=== PATIENT | male | born 1960 | race African-American/Black ===

== ENCOUNTER 2019-07-29 22:43 | Inpatient (IN) | payer BC, OTHER ==
[~2019-07-29] VITALS: Ht 188 cm; Wt 83.5 kg
[2019-07-29 22:44] VITALS: BP 136/90
[2019-07-30] VITALS (7 sets, daily range): BP systolic 121–158; BP diastolic 71–81
[2019-07-30 00:25] LABS: ABSOLUTE NEUTROPHILS 4.3 thou/uL (1.4-8.2); BASOPHILS 0.2 % (0.0-2.0); EOSINOPHILS 0.1 % (0.0-3.0); HEMATOCRIT 41.9 % (42.0-52.0); HEMOGLOBIN 13.6 gm/dL (14.0-18.0); LYMPHOCYTES 14.4 % (24.0-44.0); MCH 25.6 pg (26.0-34.0); MCHC 32.4 g/dL (28.0-37.0); MCV 79.2 fL (80.0-100.0); MONOCYTES 7.1 % (1.0-8.0); PLATELET COUNT 130 thou/uL (150-400); POLYS 78.2 % (36.0-66.0); RDW 14.5 % (10.5-14.5); WBC 5.5 thou/uL (4.0-11.0)
[2019-07-30 00:32] LABS: ANION GAP 12 mmol/L (7-16); BUN 17 mg/dL (7-18); CALCIUM 8.8 mg/dL (8.5-10.1); CHLORIDE 97 mmol/L (98-107); CO2 22 mmol/L (21-32); CREATININE 1.4 mg/dL (0.7-1.3); GLUCOSE 110 mg/dL (74-106); POTASSIUM 4.2 mmol/L (3.5-5.1); SODIUM 131 mmol/L (136-145)
[2019-07-30 00:37] LABS: ALBUMIN 2.9 g/dL (3.4-5.0); SGOT 48 U/L (15-37); SGPT 47 U/L (30-65); TOTAL PROTEIN 8.3 g/dL (6.4-8.2)
[2019-07-30 00:37] LABS: URINE BILIRUBIN NEGATIVE (Negative); URINE BLOOD 3+ (Negative); URINE CLARITY CLEAR; URINE COLOR YELLOW; URINE GLUCOSE-RANDOM* NEGATIVE (Negative); URINE KETONES NEGATIVE (Negative); URINE LEUKOCYTES-REFLEX NEGATIVE (Negative); URINE NITRITE-REFLEX NEGATIVE (Negative); URINE PROTEIN (DIPSTICK) 3+ (Negative); URINE SPECIFIC GRAVITY >= 1.030 (1.005-1.035); URINE UROBILINOGEN 0.2 E.U./dl (0.2-1.0)
[2019-07-30 00:41] LABS: TROPONIN-I <0.06 ng/mL (<0.06)
[2019-07-30 00:52] LABS: APTT 28.9 Seconds (24.5-32.8); PROTIME 10.3 Seconds (9.3-11.4)
[2019-07-30 01:15] LABS: FINE GRANULAR CASTS 0-3 Few /LPF (None Seen); HYALINE CASTS 0-3 Few /LPF (None Seen); MUCUS 0-3 Light strn/LPF (None Seen); SQUAMOUS 0-3 Few /LPF (0-3)
[2019-07-30 01:16] LABS: AMORPHOUS URATES Few /LPF (None Seen); BACTERIA-REFLEX None Seen /HPF (None Seen); CRYSTALS None Seen /LPF (None Seen); URINE RBC 0-2 Rare /HPF (0-2); URINE WBC-REFLEX None Seen /HPF (0-5)
[2019-07-30] MEDS ORDERED: SILDENAFIL20 MG PO (01:17)
[2019-07-30] MEDS ORDERED: AUGMENTIN 875-1 EACH PO (01:17)
[2019-07-30] MEDS ORDERED: FLONASE 0.05%50 MCG NASAL (01:17)
[2019-07-30] MEDS ORDERED: QUETIAPINE FUM100 MG PO (01:18)
[2019-07-30] MEDS ORDERED: ESCITALOPRAM OX10 MG PO (01:18)
--- NOTE | 2019-07-30 05:13 | NUR ---
PATIENT ARRIVED FROM ER VIA CART TO RM 363. ADMISSION ASSESSMENTS COMPLETED. NOTED FEVER 103 IN ER. PATIENT TEMPURATURE AT ADMISSION ASSESSMENT WAS 99.3. ENCOURAGED GUEST TO USE MINIMAL BLANKETS AND CALL IF HE HAD ANY SWEATS OR CHILLS. NOTED ON LABS NA 131. NS INFUSING AT 125 ML/HR. WILL CONTINUE TO MONITOR.
--- NOTE | 2019-07-30 08:40 | EKG ---
[facility] [place] [place] [address] ELECTROCARDIOGRAM REPORT Name: HUMA SARABIA Room #: 363-P ADM IN M.R.#: [id number] Admission: 07/30/19 Attend Phys: Yonatan Luther Discharge: Date of : 58 Report #: [id number] THIS REPORT FOR: cc: Laura Walls MD, Sequita MD Couchonnal,Mynor Moe MD ~ THIS REPORT FOR: //name// [facility] ED Test Date: 2019-07-29 Test Time: 23:20:58 Pat Name: HUMA SARABIA Department: [facility] Gender: M Telephone Operator: linnette brock : 1960 Requested By: David Boateng Order Number: [id number] MD: Mynor Santiago Measurements Intervals [place] Rate: 116 P: 31 GA: 145 QRS: -14 QRSD: 96 T: 8 QT: 305 QTc: 424 Interpretive Statements Sinus tachycardia Probable left atrial enlargement RSR' in V1 or V2, right VCD or RVH Inferior infarct, old No previous ECG available for comparison Electronically Signed On 07-30-2019 8:39:23 CDT by Mynor Santiago [email or web address] <ELECTRONICALLY SIGNED> By: Mynor Santiago MD 07/30/19 0839 232 Mynor Santiago MD /EPI
--- NOTE | 2019-07-30 13:29 | NUR ---
INITIAL ASSESSMENT: CORNELIUS reviewed chart and spoke with nursing and attending physician. Pt was admitted from home and is in Enhanced Isolation to r/o COVID-19. SW attempted to call pt in his room via phone. No answer. Per chart, pt's ykvzdp-jy-sxn recently from COVID-19. Pt's was in contact with pt's pdodso-jo-peo while sick with COVID-19. Pt was not in contact. Pt with fever for several days. Pt is alert/orientated x 4. Pt is up ad tamiko in his room. No discharge needs identified. SW is following to assist should needs arise.
--- NOTE | 2019-07-30 19:08 | NUR ---
PATIENT CONT TO HAVE FEVERS OF ABOVE 102 THIS PM. PHYSICIAN NOTIFIED. CONT ON TYLENOL TO CONTROL FEVER. HE IS ALERT ORIENED X4. STATES HE FEELS SICK BUT FEELS BETTER WHEN HE HAS TYLENOL. WILL CONT WIHT PLAN OF CARE.
[2019-07-31] VITALS (7 sets, daily range): BP systolic 140–159; BP diastolic 68–94
--- NOTE | 2019-07-31 00:26 | NUR ---
CHARTED BIPAP ON WRONG CHART- THE BIPAP TASKS DO NOT BELONG TO THIS PATIENT
--- NOTE | 2019-07-31 00:41 | NUR ---
ASSUMED PT CARE AT 1900 HOURS. PT NOTED TO BE FEBRILE DURING THE DAY, TYLENOL GIVEN. PT REPORTING GENERAL MALAISE BUT DENIES ANY SOA, ON ROOM AIR. VS STABLE EXCEPT ORAL TEMP. 100.1 WITH INITIAL ASSESSMENT. 102.7 FOR MIDNIGHT CHECK, TYLENOL GIVEN. PT COVID-19 TEST WAS POSITIVE. SEED TESTER INFORMED. PT TO BE TRANSFERED TO ICU ROOM 237. WILL TAKE PT VIA W/C, COVERED WITH BEDSHEET AND PROTECTIVE MASK. REPORT GIVEN TO VERNON HOWELL AT THIS TIME.
[2019-07-31 02:01] LABS: HEMATOCRIT 37.9 % (42.0-52.0); HEMOGLOBIN 12.3 gm/dL (14.0-18.0); MCH 25.6 pg (26.0-34.0); MCHC 32.4 g/dL (28.0-37.0); RBC 4.8 mil/uL (4.50-6.00); RDW 14.7 % (10.5-14.5); WBC 4.5 thou/uL (4.0-11.0)
--- NOTE | 2019-07-31 02:03 | NUR ---
REPORT RECIEVED FROM [facility] [place] RN, PATIENT TRANSFERRED TO ICU AT 0130 PER POSITIVE COVID RESULTS ON 07/30/19. PATIENT ALERT AND ORIENTED X4, NO COMPLAINTS OF PAIN, SINUS RHYTHM ON LICENSING ANALYST. O2 SAT 98% ON ROOM AIR, NO SIGN OF RESPIRATORY DISTRESS. PATIENT EDUCATED ON ICU STANDARD OF CARE. LABWORK COMPLETED. PATIENT RESTING COMFORTABLY. NO SIGN OF ACUTE DISTRESS NOTED AT THIS TIME. WILL CONTINUE TO MONITOR.
[2019-07-31 02:09] LABS: CALCIUM 8.6 mg/dL (8.5-10.1); CREATININE 1.2 mg/dL (0.7-1.3)
--- NOTE | 2019-07-31 15:35 | NUR ---
PT TEMP VARIED THIS SHIFT. HAS NOT DROPPED BELOW 100.1, MANAGED WITH MEDS ORDERED. PT REPORTS ONLY HEADACHE PAIN, REPORTS COMPLETE RELIEF WITH MEDICATION. PT USES URINAL AT BEDSIDE, COMMODE FOR BOWEL MOVEMENT X1. PATIENT CONSUMED APPROX 70% OF BREAKFAST LATE IN THE MORNING. DECREASED APPETITE AT LUNCH R/T TIME OF BREAKFAST. PHONE AT BEDSIDE HAS BEEN IN COMMUNICATION WITH FAMILY. DENIES QUESTIONS OR CONCERNS THIS SHIFT. HYDRATION ENCOURAGED. DEEP BREATH AND COUGH ENCOURAGED TO EXPECTORATE MUCUS. PT HAS HAD MODERATE AMOUNT OF THICK YELLOWISH GARCIA MUCUS. O2 SATURATION CONTINUOUSLY MONITORED WITH ICU VITALS. PT UP AD KATHERYN WITH STEADY, BALANCED GAIT.
[2019-08-01 03:43] LABS: ABSOLUTE NEUTROPHILS 3.1 thou/uL (1.4-8.2); BASOPHILS 0.1 % (0.0-2.0); EOSINOPHILS 1.4 % (0.0-3.0); HEMATOCRIT 36.1 % (42.0-52.0); HEMOGLOBIN 11.7 gm/dL (14.0-18.0); LYMPHOCYTES 15.4 % (24.0-44.0); MCH 25.8 pg (26.0-34.0); MCHC 32.5 g/dL (28.0-37.0); MCV 79.4 fL (80.0-100.0); MONOCYTES 9.7 % (1.0-8.0); PLATELET COUNT 174 thou/uL (150-400); POLYS 73.4 % (36.0-66.0); RBC 4.55 mil/uL (4.50-6.00); RDW 14.1 % (10.5-14.5); WBC 4.2 thou/uL (4.0-11.0)
--- NOTE | 2019-08-01 06:20 | NUR ---
Assessments and Interventions documented. Pt febril thoughout the night T-Max 102.6 improved with medication. Patient O2 stat above 90 on room air. All vitals sign WNL. Pt independent up ad tamiko able to make need know. No complaints of headache on this shift. Complaint of mild stomach discomfort. Resolved with some crackers. Sleep comfortable throughout the night. Patient stable progressing toward goals.
[2019-08-01 09:58] VITALS: BP 161/85
--- NOTE | 2019-08-01 13:04 | EKG ---
[facility] [place] [address] ELECTROCARDIOGRAM REPORT Name: HUMA SARABIA Room #: 238-P ADM IN M.R.#: [id number] Admission: 07/30/19 Attend Phys: Yonatan Luther Discharge: Date of : 58 Report #: [id number] THIS REPORT FOR: cc: Laura Walls MD,Laura Santiago,Mynor Moe MD ~ THIS REPORT FOR: //name// [facility] Test Date: 2019-07-31 Test Time: 08:35:41 Pat Name: HUMA SARABIA Department: Room: 238 P Gender: M Lasting Floorworker: Angelique FRAZIER : 1960 Requested By: Romain Sanders Order Number: [id number] : Mynor Santiago Measurements Intervals [place] Rate: 103 P: 22 CO: 145 QRS: -25 QRSD: 91 T: 2 QT: 333 QTc: 436 Interpretive Statements Sinus tachycardia Probable left atrial enlargement Borderline left axis deviation RSR' in V1 or V2, probably normal variant Compared to ECG 07/29/2019 23:20:58 Right ventricular hypertrophy no longer present Myocardial infarct finding no longer present Electronically Signed On 08-01-2019 13:03:27 CDT by Mynor Santiago [email or web address] <ELECTRONICALLY SIGNED> By: Mynor Santiago MD 08/01/19 1303 4 4 Mynor Santiago MD /EPI
[2019-08-01 16:01] VITALS: BP 164/93
[2019-08-01 16:30] VITALS: BP 164/93
--- NOTE | 2019-08-01 16:55 | NUR ---
PATIENT TEMP ELEVATED IN BEGINNING OF SHIFT. TYLENOL ADMINISTERED. PT DID NOT SHOW MUCH IMPROVEMENT ON REASSESSMENT. PROVIDER NOTIFIED. ADMINISTERED NAPROXEN PER ORDERS, PT SHOWED TEMP WITHIN NORMAL RANGE ON REASSESSMENT. PT REMAINS ON ROOM AIR, DENIES SOA, NO S/S OF DISTRESS NOTED. PT VERBALIZES ANXIETY REGARDING ILLNESS, PT ANXIETY DECREASED AFTER SPENDING TIME EDUCATING AND SPEAKING WITH FAMILY. PT UP AD KATHERYN WITH STEADY GAIT. PT APPETITE IMPROVED THIS SHIFT. CONSUMED APPROX 90% OF BREAKFAST AND 70% OF LUNCH. PT RESPONDS WELL WHEN HYDRATION ENCOURAGED. PT PROGRESSING TOWARDS GOALS.
[2019-08-01 20:00] VITALS: BP 147/83
[2019-08-02 04:00] VITALS: BP 133/98
[2019-08-02 05:36] LABS: HEMOGLOBIN 11.5 gm/dL (14.0-18.0); MCH 25.5 pg (26.0-34.0); MCHC 31.9 g/dL (28.0-37.0); MCV 79.7 fL (80.0-100.0); RBC 4.51 mil/uL (4.50-6.00); RDW 14.4 % (10.5-14.5); WBC 4.1 thou/uL (4.0-11.0)
[2019-08-02 05:48] LABS: POTASSIUM 3.5 mmol/L (3.5-5.1)
--- NOTE | 2019-08-02 06:24 | NUR ---
Pt A&Ox4 able to make needs know. Remained afebril throught the night with medication. O2 Staturation 90 and above. No complaints of pain or discomfort. Pt rested throughout the night and is in better spirits about his prognosis. Ate 75% of dinner. No adverse event throughout the night. Patient is progressing towards goal.
--- NOTE | 2019-08-02 16:07 | HC ---
[facility] [place] [address] CONSULTATION Name: HUMA SARABIA Room #: 238-P [facility] IN M.R.#: [id number] Admission: 07/30/19 Attend Phys: Yonatan Luther Discharge: Date of : 58 Report #: [id number] THIS REPORT FOR: cc: Laura Walls MD,Laura Olivas,David Milan MD ~ CC: Yonatan Walls DATE OF SERVICE: 07/30/2019 INFECTIOUS DISEASE CONSULTATION REASON FOR CONSULTATION: I was asked to evaluate concerning community-acquired pneumonia and possible COVID-19. HISTORY OF PRESENT ILLNESS: The patient was a 59-year-old with no previous pulmonary history, who presents with a 1-week history of persistent fever associated with progressive shortness of breath, intermittent cough which was nonproductive. Seen in the outpatient clinic, placed on Augmentin followed by doxycycline. Continued to run fever and presented to the Emergency Room. It is noted that his atfpqs-ud-spu of COVID-19 pneumonia and ARDS. His did take care of her periodically. His has been otherwise well. He had no specific contact with his tapkze-ib-uar during her illness. He has had no travel. He works in manufacturing. No other known exposures. No HIV risk factors. No history of tuberculosis or fungal infections. He is a nonsmoker. REVIEW OF SYSTEMS: Notes no GI or complaints. No issues with taste or smell. He has had some mild headaches. Just is overly fatigued with mild myalgias. No arthritis or rash. No bleeding issues. No adenopathy noted. Full 14-point review was negative other than what has been described above. ALLERGIES: ASPIRIN. MEDICATIONS: As noted on his MAR, having been started on azithromycin and ceftriaxone. Was previously on Flonase, Cialis, Seroquel, escitalopram. PAST MEDICAL HISTORY: Anxiety and depression. FAMILY HISTORY: No tuberculosis reported. SOCIAL HISTORY: , nonsmoker, no significant alcohol intake. PHYSICAL EXAMINATION: Due to PPE conservation program, examination as per attending, which was reviewed and discussed. Also discussed with nursing on the floor who was evaluating the patient earlier today. [facility] [address] [place] [address] CONSULTATION Name: HUMA SARABIA Room #: 238-P [facility] IN M.R.#: [id number] Admission: 07/30/19 Attend Phys: Yonatan Luther Discharge: Date of : 58 Report #: [id number] LABORATORY STUDIES: Reviewed. Microbiology reports reviewed. Chest x-ray was viewed and agree with the interpretation. IMPRESSION: A 59-year-old with community-acquired pneumonia, ongoing fever concerning for COVID-19 infection. Has reasonable history and we are in current pandemic. RECOMMENDATIONS: We will continue antibiotic coverage with azithromycin, ceftriaxone and we will await COVID testing, which should be back later on this afternoon. If positive, we would add hydroxychloroquine to his program. We will also screen for other infection agents. His QT interval was evaluated and is within normal limits. We will need to monitor him in the hospital closely for any evidence of respiratory decline. <ELECTRONICALLY SIGNED> By: David Olivas MD 08/02/19 1607 1307 1342 David Olivas MD /nt
--- NOTE | 2019-08-02 16:49 | NUR ---
ASSESSMENTS AND INTERVENTIONS DOCCUMENTED. RN ASSUMED CARE OF PATIENT AROUND 1000. NO MAJOR CHANGES THROUGH OUT SHIFT. PATIENT RESTING, WITH NO COMPLAINTS. PATIENT CONTINUES TO AMBULATE ADLIB. PATIENT RPROGRESSING TOWARDS GOALS AT THIS TIME
[2019-08-02 20:50] VITALS: BP 139/90
--- NOTE | 2019-08-02 23:29 | EKG ---
[facility] [place] [address] ELECTROCARDIOGRAM REPORT Name: HUMA SARABIA Room #: 364-P ADM IN M.R.#: [id number] Admission: 07/30/19 Attend Phys: Yonatan Luther Discharge: Date of : 58 Report #: [id number] THIS REPORT FOR: cc: Laura Walls MD, Sequita MD Couchonnal,Mynor Moe MD ~ THIS REPORT FOR: //name// [facility] Test Date: 2019-08-02 Test Time: 17:04:31 Pat Name: HUMA SARABIA Department: Room: 364 Gender: M Boat Crew Deck Hand: Sheryl THOMPSON : 1960 Requested By: David Olivas Order Number: [id number] MD: Mynor Santiago Measurements Intervals [place] Rate: 91 P: 26 ND: 182 QRS: -7 QRSD: 114 T: -14 QT: 352 QTc: 434 Interpretive Statements Sinus rhythm Left atrial enlargement Incomplete right bundle branch block Compared to ECG 07/31/2019 08:35:41 Incomplete right bundle-branch block now present Sinus tachycardia no longer present Electronically Signed On 08-02-2019 23:27:57 CDT by Mynor Santiago [email or web address] <ELECTRONICALLY SIGNED> By: Mynor Santiago MD 08/02/19 2327 170 170 Mynor Santiago MD /EPI
[2019-08-03 04:51] VITALS: BP 163/97
--- NOTE | 2019-08-03 05:24 | NUR ---
PATIENT TRANSFERRED FROM ICU TO 364. ASSUMED CARE OF PATIENT AT [facility] 1930. PATIENT IS ON ENHANCED PRECATIONS FOR COVID-19 POSITIVE RESULTS. PATIENT REMAINED AFEBRILE THROUGHOUT NIGHT. PATIENT ON RA WITH OXYGEN SAT MONITORED AT 95% OR ABOVE. BLOOD PRESSURE AT INITIAL SHIFT ASSESSMENT 139/90. BLOOD PRESSURE MEASURED 159/108 AT 0400 ASSESSMENT AND 163/97 UPON SUBSEQUENT REMEASUREMENT. WILL CONTINUE TO MONITOR.
[2019-08-03 08:43] VITALS: BP 149/95
--- NOTE | 2019-08-03 14:35 | NUR ---
SW reviewed chart and spoke with nursing and attending physician. Pt was transferred to ICU from 3W when COVID-19 test came back positive. Pt was transferred back to 3W yesterday and is progressing towards goals for discharge. SW spoke with pt via phone to discuss pt's discharge plan. Pt lives at home with his and confirmed that he is independent with ADLs. No use of DME. No hx of services or post-acute placement. Pt's PCP is Dr. Laura Walls. Pt's family will provide transportation home upon discharge. CORNELIUS is following to assist as needed with discharge planning.
--- NOTE | 2019-08-03 17:14 | NUR ---
ASSUMED CARE APPROX 0700. PT AWAKE, ALERT AND ORIENTED X4. PT ON ROOM AIR. DENIES PAIN. LOW GRADE FEVER OF 99.1 THIS MORNING, BUT PT DENIED NEED FOR NAPROXEN. PT REPORTED A BOWEL MOVEMENT THIS AM. PT SHOWS NO SIGNS OR RESPIRATORY DISTRESS OR DYSPNEA. PT HAS HAD NO COMPLAINTS OR CONCERNS THIS SHIFT. WILL CONTINUE TO MONITOR. PT PROGRESSING TOWARDS PLAN OF CARE GOALS.
[2019-08-03 17:32] VITALS: BP 155/84; BP 165/101
[2019-08-03 19:42] VITALS: BP 153/87
--- NOTE | 2019-08-03 20:25 | NUR ---
PT RESTING IN BED WATCHING TV, DRY COUGH, LUNGS COARSE. IV ANTIBIOTICS INTACT. PT SMILING LAUGHING GOOD EYE CONTACT. PT REQUESTED SNACK AND PROVIDED. PT HOPES FOR DC TO HOME. 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 INDEP [facility] AMBULATION.
[2019-08-04 03:36] VITALS: BP 165/95
[2019-08-04 04:46] LABS: ALBUMIN 1.9 g/dL (3.4-5.0); ANION GAP 9 mmol/L (7-16); BUN 7 mg/dL (7-18); CALCIUM 8.5 mg/dL (8.5-10.1); CHLORIDE 103 mmol/L (98-107); CO2 26 mmol/L (21-32); GLUCOSE 94 mg/dL (74-106); POTASSIUM 3.5 mmol/L (3.5-5.1); SGOT 164 U/L (15-37); SGPT 238 U/L (30-65); SODIUM 138 mmol/L (136-145); TOTAL BILIRUBIN 0.6 mg/dL (<0.1-1.0); TOTAL PROTEIN 7.1 g/dL (6.4-8.2); TROPONIN-I <0.06 ng/mL (<0.06)
[2019-08-04 05:08] LABS: ABSOLUTE NEUTROPHILS 2.3 thou/uL (1.4-8.2); BASOPHILS 0.5 % (0.0-2.0); EOSINOPHILS 4.1 % (0.0-3.0); HEMATOCRIT 34.9 % (42.0-52.0); HEMOGLOBIN 11.5 gm/dL (14.0-18.0); LYMPHOCYTES 20.5 % (24.0-44.0); MCV 78.8 fL (80.0-100.0); MONOCYTES 10.9 % (1.0-8.0); RBC 4.43 mil/uL (4.50-6.00); RDW 14.2 % (10.5-14.5); WBC 3.7 thou/uL (4.0-11.0)
[2019-08-04 05:32] LABS: PLATELET COUNT 294 thou/uL (150-400)
[2019-08-04 08:19] VITALS: BP 172/90
[2019-08-04 11:08] LABS: ADENOVIRUS Negative (Negative); INFLUENZA A Negative (Negative); INFLUENZA B Negative (Negative); METAPNEUMOVIRUS Negative (Negative); PARAINFLUENZA 1 Negative (Negative); PARAINFLUENZA 2 Negative (Negative); PARAINFLUENZA 3 Negative (Negative); RHINOVIRUS Negative (Negative); RSV A Negative (Negative); RSV B Negative (Negative)
--- NOTE | 2019-08-04 12:02 | NUR ---
SW reviewed chart and spoke with nursing and attending physician. Pt to have chest xray today. Pt's BP was elevated this morning. Plan is for pt to discharge home when medically stable. No discharge needs anticipated at this time. SW is following to assist as needed should needs arise.
[2019-08-04 17:12] VITALS: BP 157/97
--- NOTE | 2019-08-04 17:41 | NUR ---
Assumed care approx 0700. Pt alert and oriented x4. Pt stable on room air this shift. Pt has had no signs of respiratory distress and reports no difficulty breathing. Dr. Kaba saw pt via telehealth this shift and discussed plan of care and possible d/c. Pt to be NPO after midnight for Abdominal U/S tomorrow morning and pt informed. Pt has had no complaints or concerns this shift. Pt is progressing towards plan of care goals. Will continue to monitor.
[2019-08-04 19:28] VITALS: BP 165/86
--- NOTE | 2019-08-04 20:07 | NUR ---
PT RESTING IN BED WATCHING TV. REMAINS STEADY AND INDEP WITH AMBULATION. NO COUGH OBSERVED. LUNGS WHEEZES AND DIMININSHED. PT VERBALIZED UNDERSTANDING OF NPO P MN FOR AM US. PT PROVIDED HS SNACK. PT VERBALIZED CONCERN R/T CONTINUES SBP IN 160S BUT DENIES WANTING TO TAKE MEDICATIONS, DR NOTIFIED BY DAY NURSE OF VS DURING ROUNDS. PT WANTING DC TOMORROW.
[2019-08-05 05:27] VITALS: BP 164/86
[2019-08-05 09:25] LABS: ALBUMIN 2.2 g/dL (3.4-5.0); CALCIUM 8.8 mg/dL (8.5-10.1); POTASSIUM 3.8 mmol/L (3.5-5.1); TOTAL BILIRUBIN 0.5 mg/dL (<0.1-1.0); TOTAL PROTEIN 7.6 g/dL (6.4-8.2)
[2019-08-05 09:32] VITALS: BP 157/96
[2019-08-05] MEDS ORDERED: MUCINEX600 MG PO (10:09)
[2019-08-05] MEDS ORDERED: VENTOLIN HFA 1818 GM INH (10:09)
[2019-08-05 10:55] VITALS: BP 157/96
--- NOTE | 2019-08-05 12:09 | NUR ---
ON-GOING ASSESSMENT: CM REVIEWED CHART AND SPOKE WITH ATTENDING. PT IS POSSIBLE DISCHARGE TODAY. CM SPOKE WITH PATIENT VIA PHONE AND HE REPORTS HE WILL HAVE NO NEEDS AT DISCHARGE. PT STATES HIS IS GOING TO PICK HIM UP FROM THE HOSPITAL.
[2019-08-05 12:36] VITALS: BP 157/96
[2019-08-05 12:48] VITALS: BP 157/96
--- NOTE | 2019-08-05 12:54 | NUR ---
PT WILL D/C HOME WITH SPOUSE TODAY...WILL FOLLOW UP NEXT WEEK WITH PCP AND OBTAING A FOLLOWUP CHEST XRAY..
[2019-08-05 13:10] VITALS: BP 157/96
== END 2019-08-05 14:12 | disposition home or self-care (01) | DRG 177 ==
LOC: ER 22:43 → EROBS 07-30 01:26 → 3W 07-30 01:26 → ICU 07-31 01:38 → 3W 08-02 20:00
PROVIDERS: Emergency Medicine; Hospitalist; Nurse Practitioner Family; Specialist; ADMIT Hospitalist
DX: U07.1 COVID-19 (principal); J12.89 Other viral pneumonia; Z20.828 Contact with and (suspected) exposure to other viral communicable diseases; F41.9 Anxiety disorder, unspecified; F32.9 Major depressive disorder, single episode, unspecified; Z88.8 Allergy status to other drugs, medicaments and biological substances; Z79.899 Other long term (current) drug therapy
CPT/HCPCS: 10078; 10879

== ENCOUNTER → 2020-06-19 | Outpatient (CLI) | payer BC, OTHER ==
[~2020-06-19] MED LIST: AUGMENTIN 875-1 EACH PO; ESCITALOPRAM OX10 MG PO; FLONASE 0.05%50 MCG NASAL; MUCINEX600 MG PO; QUETIAPINE FUM100 MG PO; SILDENAFIL20 MG PO; VENTOLIN HFA 1818 GM INH
== END ==
LOC: SJCVCIMAG 12:43
PROVIDERS: ATTEND Internal Medicine Cardiovascular Disease
DX: I45.10 Unspecified right bundle-branch block (principal); I35.1 Nonrheumatic aortic (valve) insufficiency; I51.7 Cardiomegaly; E78.00 Pure hypercholesterolemia, unspecified; Z86.16 Personal history of COVID-19